=== PATIENT | female | born 1950 | race Caucasian/White ===

== ENCOUNTER → 2017-03-06 | Outpatient (CLI) | payer MEDICARE ==
--- NOTE | 2017-03-06 15:24 | CARD ---
APPROVED REPORT EXAM: Two-dimensional and M-mode echocardiogram with Doppler and color Doppler. Other Information Quality : Good INDICATION Murmur 2D DIMENSIONS Left Atrium(2D)4.2 (1.6-4.0cm)IVSd1.0 (0.7-1.1cm) Aortic Root(2D)2.6 (2.0-3.7cm)LVDd5.1 (3.9-5.9cm) LVOT Diameter2.1 (1.8-2.4cm)PWd1.0 (0.7-1.1cm) LVDs2.7 (2.5-4.0cm)FS (%) 30.0 % SV93.8 mlLVEF(%)60.0 (>50%) Aortic Valve AoV Peak Sage.330.0cm/sAoV VTI65.0cm AO Peak GR.43.6mmHgLVOT Peak Sage.118.5cm/s AO Mean GR.25mmHgAVA (VMAX)1.27cm2 SAFIA (VTI)1.58ci9QQ P 1/2 [id number] Mitral Valve MV E Cqmtkxbm030.6cm/sMV DECEL [id number] MV A Wbkpoqlk61.2cm/sE/A Ratio1.2 Tricuspid Valve TR P. Nkzmykim438gl/sRAP SQVZIVGR5ocTp TR Peak Gr.75cmUvNADT18khPn Pulmonary Vein S1 Rdggafrb51.6cm/sD2 Fwnyzzoi12.2cm/s LEFT VENTRICLE The left ventricle is normal size. There is normal left ventricular wall thickness. The left ventricu lar systolic function is normal and the ejection fraction is within normal range. The Ejection Fracti on is 55-60%. There is normal LV segmental wall motion. Transmitral Doppler flow pattern is Grade I-a bnormal relaxation pattern. RIGHT VENTRICLE The right ventricle is normal size. The right ventricular systolic function is normal. ATRIA The left atrium is mildly dilated. The right atrium size is normal. The interatrial septum is intact with no evidence for an atrial septal defect or patent foramen ovale as noted on 2-D or Doppler imagi ng. AORTIC VALVE The aortic valve is calcified and displays mildli decreased opening. Doppler and Color Flow revealed mild aortic regurgitation. Calculated aortic valve area is 1.2 cm2 with maximum pressure gradient of 44 mmHg and mean pressure gradient of 25 mmHg. Doppler and color-flow analysis revealed moderate aort ic stenosis. MITRAL VALVE The mitral valve is normal in structure and function. There is no evidence of mitral valve prolapse. There is no mitral valve stenosis. Doppler and Color-flow revealed trace mitral regurgitation. TRICUSPID VALVE The tricuspid valve is normal in structure and function. Doppler and Color Flow revealed trace to mil d tricuspid regurgitation. The PA pressure was estimated at 32 mmHg. There is no tricuspid valve sten osis. PULMONIC VALVE The pulmonary valve is normal in structure and function. Doppler and Color Flow revealed mild pulmoni c valvular regurgitation. There is no pulmonic valvular stenosis. GREAT VESSELS The aortic root is normal in size. The ascending aorta is normal in size. The IVC is normal in size a nd collapses >50% with inspiration. PERICARDIAL EFFUSION There is no evidence of significant pericardial effusion. Critical Notification Critical Value: No <Conclusion> The left ventricle is normal size. The left ventricular systolic function is normal and the ejection fraction is within normal range. The Ejection Fraction is 55-60%. The aortic valve is calcified and displays mildli decreased opening. Calculated aortic valve area is 1.2 cm2 with maximum pressure gradient of 44 mmHg and mean pressure g radient of 25 mmHg. Doppler and color-flow analysis revealed moderate aortic stenosis. Doppler and Color Flow revealed mild aortic regurgitation. Doppler and Color-flow revealed trace mitral regurgitation. Doppler and Color Flow revealed trace to mild tricuspid regurgitation. The PA pressure was estimated at 32 mmHg.
== END | disposition home or self-care (01) ==
LOC: ECHO 14:28
PROVIDERS: ATTEND Nurse Practitioner Family
DX: I35.1 Nonrheumatic aortic (valve) insufficiency (principal); I35.0 Nonrheumatic aortic (valve) stenosis; I37.1 Nonrheumatic pulmonary valve insufficiency; R01.1 Cardiac murmur, unspecified
CPT/HCPCS: 93306